=== PATIENT | male | born 1985 | race Caucasian/White ===

== ENCOUNTER 2025-01-03 22:39 | Emergency (ER) | payer MEDICAID, SELFPAY ==
--- NOTE | 2025-01-03 22:32 | ECG_ITS ---
APPROVED REPORT Exam: Resting ECG HR:120 bpm ECG Measurements Heart Rate 120 AXES MD 149 P 69 QRSd 92 QRS 49 QT 300 T 58 QTc 371 Conclusion SINUS TACHYCARDIA MODERATE VOLTAGE CRITERIA FOR LVH, CONSIDER NORMAL VARIANT [MEETS CRITERIA IN ONE OF: R(aVL), S(V1), R(V5), R(V5/V6)+S(V1)] ABNORMAL RHYTHM ECG Electronically signed by : Malcolm Hopson, 01/04/2025 00:55:10
[2025-01-03 22:41] VITALS: BP 172/117; PULSE 121; RESP 16; TEMP 36.7; O2SAT 97; BMI 23.2
[2025-01-03 22:45] VITALS: PULSE 109; RESP 11; O2SAT 98
--- NOTE | 2025-01-03 22:47 | CT_ITS ---
PROCEDURE INFORMATION: Exam: CTA Neck With Contrast Exam date and time: 01/03/2025 11:01 PM Age: 39 years old Clinical indication: Stroke-like symptoms; Speech disturbance; Additional info: Speech difficulty, lue weakness TECHNIQUE: Imaging protocol: Computed tomographic angiography of the neck with contrast. Exam focused on the cervical segments of the vasculature. 3D rendering (Not supervised by radiologist): MIP and/or 3D reconstructed images were created by the technologist. Radiation optimization: All CT scans at this facility use at least one of these dose optimization techniques: automated exposure control; mA and/or kV adjustment per patient size (includes targeted exams where dose is matched to clinical indication); or iterative reconstruction. Contrast material: ISOVUE; Contrast volume: 80 ml; Contrast route: INTRAVENOUS (IV); COMPARISON: CT HEAD/BRAIN WO CON 01/03/2025 10:58 PM FINDINGS: Right common carotid artery: No stenosis. No dissection or occlusion. Right internal carotid artery: No stenosis of the extracranial segment. No dissection or occlusion. Right external carotid artery: No occlusion or stenosis of the origin. Left common carotid artery: No stenosis. No dissection or occlusion. Left internal carotid artery: No stenosis of the extracranial segment. No dissection or occlusion. Left external carotid artery: No occlusion or stenosis of the origin. Right vertebral artery: No stenosis. No dissection or occlusion. Left vertebral artery: No stenosis. No dissection or occlusion. Soft tissues: Normal. No significant soft tissue swelling. Bones/joints: No acute fracture. IMPRESSION: No stenosis or occlusion. REFERENCES: NASCET CRITERIA. The degree of stenosis in the cervical segment of the internal carotid artery is based on NASCET criteria. Normal is no stenosis. Mild is less than 50% stenosis. Moderate is 50-69% stenosis. Severe is 70% to 99% stenosis. Total occlusion is no detectable patent lumen.
--- NOTE | 2025-01-03 22:47 | CT_ITS ---
PROCEDURE INFORMATION: Exam: CTA Head With Contrast, Arteriography Exam date and time: 01/03/2025 11:01 PM Age: 39 years old Clinical indication: Stroke-like symptoms; Speech disturbance; Additional info: Speech difficulty, speech difficulty, lue weakness TECHNIQUE: Imaging protocol: Computed tomographic angiography of the head with contrast. Exam focused on the arteries. 3D rendering (Not supervised by radiologist): MIP and/or 3D reconstructed images were created by the technologist. Radiation optimization: All CT scans at this facility use at least one of these dose optimization techniques: automated exposure control; mA and/or kV adjustment per patient size (includes targeted exams where dose is matched to clinical indication); or iterative reconstruction. Contrast material: ISOVUE; Contrast volume: 80 ml; Contrast route: INTRAVENOUS (IV); COMPARISON: CT HEAD/BRAIN WO CON 01/03/2025 10:58 PM FINDINGS: ANTERIOR CIRCULATION: Right internal carotid artery: Intracranial segment is patent with no significant stenosis. No aneurysm. Right middle cerebral artery: No occlusion or significant stenosis. No aneurysm. Right anterior cerebral artery: No occlusion or significant stenosis. No aneurysm. Left internal carotid artery: Intracranial segment is patent with no significant stenosis. No aneurysm. Left middle cerebral artery: No occlusion or significant stenosis. No aneurysm. Left anterior cerebral artery: No occlusion or significant stenosis. No aneurysm. POSTERIOR CIRCULATION: Right vertebral artery: No occlusion or significant stenosis. No aneurysm. Left vertebral artery: No occlusion or significant stenosis. No aneurysm. Basilar artery: No occlusion or significant stenosis. No aneurysm. Right posterior cerebral artery: No occlusion or significant stenosis. No aneurysm. Left posterior cerebral artery: No occlusion or significant stenosis. No aneurysm. Brain: No definite mass, mass effect, or midline shift. Cerebral ventricles: No ventriculomegaly. Bones/joints: Unremarkable. No acute fracture. Soft tissues: Unremarkable. IMPRESSION: No large vessel stenosis or occlusion.
--- NOTE | 2025-01-03 22:47 | XR_ITS ---
PROCEDURE INFORMATION: Exam: XR Chest Exam date and time: 01/03/2025 11:05 PM Age: 39 years old Clinical indication: Pain; Chest pressure; Additional info: Cp TECHNIQUE: Imaging protocol: Radiologic exam of the chest. Views: 1 view. COMPARISON: CT ANGIO NECK 01/03/2025 11:01 PM FINDINGS: Lungs: Unremarkable. No consolidation. Pleural spaces: Unremarkable. No pleural effusion. No pneumothorax. Heart/Mediastinum: Unremarkable. No cardiomegaly. Bones/joints: Unremarkable. IMPRESSION: No acute findings.
--- NOTE | 2025-01-03 22:47 | CT_ITS ---
PROCEDURE INFORMATION: Exam: CT Head Without Contrast Exam date and time: 01/03/2025 10:58 PM Age: 39 years old Clinical indication: Stroke-like symptoms; Speech disturbance; Additional info: Speech difficulty, lue weakness TECHNIQUE: Imaging protocol: Computed tomography of the head without contrast. Radiation optimization: All CT scans at this facility use at least one of these dose optimization techniques: automated exposure control; mA and/or kV adjustment per patient size (includes targeted exams where dose is matched to clinical indication); or iterative reconstruction. Other technique: STROKE PROTOCOL was implemented. COMPARISON: No relevant prior studies available. FINDINGS: Brain: Chronic small vessel ischemic disease. No hemorrhage. No mass effect. No findings to suggest acute infarction. Cerebral ventricles: No ventriculomegaly. Paranasal sinuses: Mild mucosal thickening in the left maxillary sinus. Mastoid air cells: Visualized mastoid air cells are well aerated. Bones: Unremarkable. No acute fracture. Soft tissues: Unremarkable. IMPRESSION: No findings to suggest acute infarction. Chronic small vessel ischemic disease. ASSESSMENT: ASPECTS (Tari Stroke Program Early CT Score) is 10.
--- NOTE | 2025-01-03 22:53 | PC.NURSE ---
respiratory contacted regarding the order for VBG
[2025-01-03 22:55] LABS: Basophils # 0.1 K/mm3 (0-0.2); Basophils % 0.9 % (0.1-2.0); Eosinophils # 0.1 Kmm3 (0.0-0.4); Eosinophils % 1.3 % (0.1-12.0); Hematocrit 44.5 % (42.0-52.0); Hemoglobin 15.6 g/dL (14.1-18.0); Lymphocytes # 0.7 K/mm3 (0.7-4.5); Lymphocytes % 13.1 % (10-50); Mean Corpuscular HGB Conc 35.1 g/dL (31.8-35.4); Mean Corpuscular Hemoglobin 32.6 pg (27.0-31.2); Mean Corpuscular Volume 92.9 fl (80-94); Mean Platelet Volume 11.6 fl (7.4-10.4); Monocytes # 0.1 K/mm3 (0.1-1.0); Monocytes % 1.3 % (1.7-9.3); Neutrophils # 4.4 K/mm3 (1.8-7.8); Neutrophils % 82.8 % (37.0-80.0); Nucleated Red Blood Cells # 0 10^3/uL; Nucleated Red Blood Cells % 0 %; Platelet Count 186 K/mm3 (142-424); Red Blood Count 4.79 M/mm3 (4.60-6.20); Red Cell Distribution Width 13.7 % (11.5-17.5); Red Cell Distribution Width-SD 46.9 fL; White Blood Count 5.3 K/mm3 (4.8-10.8)
[2025-01-03 22:55] LABS: VBG Base Excess -1.9 mmol/L (-2.4-2.3); VBG HCO3 22.8 mmol/L (23-30); VBG Oxygen Saturation 98.9 % (50-70); VBG PCO2 37.2 mmol/L (35-51); VBG PH 7.41 mmol/L (7.31-7.41); VBG PO2 153.4 mmol/L (28-40); VBG Total CO2 23.9 mmol/L (23-27)
[2025-01-03 22:56] LABS: Lactate Venous 3.1 mmol/L (0.4-2.0)
[2025-01-03] MEDS: 0.9 % SODIUM CHLORIDE 1000ML 1,000 ML 999 ML IV (22:57)
[2025-01-03 22:58] LABS: Alanine Aminotransferase 70 U/L (12-78); Albumin Level 5.4 g/dl (3.5-5.0); Alkaline Phosphatase 72 U/L (38-126); Anion Gap 14.5 mEq/L (5-15); Aspartate Amino Transferase 82 U/L (17-59); Bilirubin,Total 0.5 mg/dl (0.2-1.3); Blood Urea Nitrogen 10 mg/dl (9-20); Calcium 9.9 mg/dl (8.4-10.2); Carbon Dioxide 23 mmol/L (22.0-30.0); Chloride 110 mmol/L (98-107); Creatinine Clearance Estimated 127 mL/min (50-200); Estimated Glomerular Filt Rate 126 ml/min (>60); GFR (African American) 152 ML/MIN (>60); Globulin 2.7 g/dL (1.3-3.2); Glucose 164 mg/dl (74-100); Magnesium 2.3 mg/dl (1.6-2.3); Potassium 4.5 mmoL/L (3.5-5.1); Sodium 143 mmol/L (136-145); Total Protein,Serum 8.1 g/dl (6.3-8.2)
--- NOTE | 2025-01-03 22:59 | PC.NURSE ---
Pt out of the room to CT scan.
[2025-01-03 23:09] VITALS: BP 175/105; PULSE 116; O2SAT 97
--- NOTE | 2025-01-03 23:09 | HMH.EDGENADL ---
Discharge Plan Disposition Patient Disposition: Home, Self-Care Condition: Good Prescriptions Prescriptions: New aspirin 81 mg tablet,chewable 81 mg PO DAILY Qty: 30 0RF atorvastatin 20 mg tablet 20 mg PO DAILY Qty: 30 0RF Referrals Follow up/Referrals: Provider,Referral, [Primary Care Provider] - See instructions Activity Restrictions/Add. Instructions Additional Instructions/Restrictions: Make sure to follow-up with your primary care doctor soon as possible for an MRI. Take your aspirin and statin that I prescribed you. Return to the emergency department at once with any return in your symptoms. Please follow up with your primary care provider in 2-3 days. Please return to ED if your symptoms worsen, change in location, change in severity, new symptoms develop or if you become concerned for your health. Clinical Impressions Clinical Impression: Stroke-like symptoms Print Language Print Language: Citizen Of [place] Discharge ED Provider: Malcolm Hopson Adult HPI General Chief complaint: Neuro Symptoms/Deficit Stated complaint: Chest pain Time Seen by Provider: 01/03/25 22:47 Mode of Arrival: Ambulatory Source of Information: Significant Other Description of Symptoms (Recalled from ER Triage Doc. by RN): pt presents with c/o tingling to all extremities, stuttering speech, pain to left arm. Pt reports tingling beginning weeks ago with stuttering speech hours ago Pt unsure of what left sided facial droop began. Related Data Previous Rx's ?Medication ?Instructions ?Recorded aspirin 81 mg chewable tablet 81 mg PO DAILY #30 tabs 01/04/25 atorvastatin 20 mg tablet 20 mg PO DAILY #30 tabs 01/04/25 Allergies Allergy/AdvReac Type Severity Reaction Status Date / Time Penicillins AdvReac Other Verified 01/03/25 22:49 [facility] Disclaimer: The information contained in this section may have been updated after the patient was seen, as this information can be updated by other users. Social History Smoking Status: Current every day smoker alcohol intake: current current occupational status: unemployed Travel in the last 8 weeks?: None ROS Obtained: Yes All systems reviewed & no additional complaints except as documented Physical Exam General General appearance: alert and in no apparent distress Head Head exam: atraumatic Eye Eye exam: Present normal appearance, PERRL and EOMI ENT ENT exam: Present normal exam and normal oropharynx Neck Neck exam: Present normal inspection and full ROM; Absent tenderness Chest Chest inspection: Present normal inspection Respiratory Respiratory exam: Present normal lung sounds bilaterally; Absent respiratory distress Cardiovascular Cardiovascular exam: Present regular rate, normal rhythm and normal heart sounds Abdominal Exam Abdominal exam: Present soft; Absent distention or tenderness Extremities Exam Extremities exam: Present normal inspection Neurological Exam Neurological exam: Present alert, oriented X3, CN II-XII intact and motor sensory deficit (LUE and LLE breakaway weakness, inconsistent exam) Psychiatric Psychiatric exam: Present anxious Medical Decision Making Medical Records Screening: Per USPSTF and CDC recommendations, given the prevalence of disease in our region, it is our hospital?s policy to screen for HIV and viral Hepatitis for all patients aged 18 and over and those with ongoing risk factors. Michael Inquiry Pt receiving controlled substance: No Vital Signs: 01/03/25 22:41 01/03/25 22:45 01/03/25 23:09 Temperature 98.1 F Temperature Source Oral Pulse Rate 109 H 116 H Pulse Rate [Radial] 121 H Respiratory Rate 16 11 L Blood Pressure 175/105 H Blood Pressure [Right Arm] 172/117 H Blood Pressure Mean [Right Arm] 135 Blood Pressure Position [Right Arm] Supine 02 Sat by Pulse Oximetry 97 98 97 Oxygen Delivery Method Room Air 01/03/25 23:30 Temperature Temperature Source Pulse Rate 103 H Pulse Rate [Radial] Respiratory Rate 20 Blood Pressure 145/102 H Blood Pressure [Right Arm] Blood Pressure Mean [Right Arm] Blood Pressure Position [Right Arm] 02 Sat by Pulse Oximetry 98 Oxygen Delivery Method Lab Data Lab Results 01/03/25 22:40: WBC 5.3, RBC 4.79, Hgb 15.6, Hct 44.5, MCV 92.9, MCH 32.6 H, MCHC 35.1, RDW 13.7, Plt Count 186, MPV 11.6 H, Neut % (Auto) 82.8 H, Lymph % (Auto) 13.1, Brewster % (Auto) 1.3 L, Eos % (Auto) 1.3, Baso % (Auto) 0.9, Neut # (Auto) 4.4, Lymph # (Auto) 0.7, [place] # (Auto) 0.1, Eos # (Auto) 0.1, Baso # (Auto) 0.1, Sodium 143, Potassium 4.5, Chloride 110 H, Carbon Dioxide 23, Anion Gap 14.5, BUN 10, Creatinine 0.70, Estimated Creat Clear 127, Estimated GFR 126, Est GFR ( Amer) 152, Glucose 164 H, Calcium 9.9, Magnesium 2.3, Total Bilirubin 0.5, AST 82 H, ALT 70, Alkaline Phosphatase 72, Troponin I < 0.01, Total Protein 8.1, Albumin 5.4 H, Globulin 2.7, Albumin/Globulin Ratio 2.0 H 01/03/25 22:53: VBG pH 7.41, VBG pCO2 37.2, VBG pO2 153.4 H, VBG HCO3 22.8 L, VBG Total CO2 23.9, VBG O2 Saturation 98.9 H, VBG Base Excess -1.9, VBG Lactic Acid 3.1 H 01/03/25 22:40 01/03/25 22:40 Orders (Tests/Meds): ED MEDICATIONS Discontinued Medications Generic Name Dose Route Start Last Admin Trade Name Freq PRN Reason Stop Dose Admin Sodium Chloride 1,000 mls @ 999 mls/hr 01/03/25 22:47 01/03/25 22:57 Sod Chlor 0.9% 1000ml Bag IV 01/03/25 23:47 999 mls/hr .Q1H1M ONE Administration Iopamidol 80 ml 01/03/25 23:11 01/03/25 23:12 Iopamidol-370 (76%);100ml Bottle IV 01/03/25 23:12 80 ml ONCE ONE Administration Sodium Chloride 50 ml 01/03/25 23:11 01/03/25 23:12 0.9 % Sodium Chloride 50 Ml Vial IV 01/03/25 23:12 50 ml ONCE ONE Administration Sodium Chloride 10 ml 01/03/25 23:11 01/03/25 23:12 Sodium Chloride 0.9% 10ml Syr (Rad Only) IV 01/03/25 23:12 10 ml ONCE ONE Administration ORDERS Category Date Time Status CT angio head Stat Cat Scan 01/03/25 22:[address] angio neck Stat Cat Scan 01/03/25 22:[address] head/brain wo con Stat Cat Scan 01/03/25 22:47 Completed CXR --portable [XR chest portable] Stat Exams 01/03/25 22:47 Completed CBC w/Auto Diff [Complete Blood Count Auto Diff] Stat Lab 01/03/25 22:40 Completed CMP [Comprehensive Metabolic Panel] Stat Lab 01/03/25 22:40 Completed MAG [Magnesium] Stat Lab 01/03/25 22:40 Completed Trop I [Troponin I] Stat Lab 01/03/25 22:40 Completed Troponin I Q3H Lab 01/04/25 02:00 Ordered Troponin I Q3H Lab 01/04/25 05:00 Ordered UA [Urinalysis and Microscopic] Stat Lab 01/03/25 22:47 Ordered UDS [Drug Screen,Urine] Stat Lab 01/03/25 22:47 Ordered VBG [Venous Blood Gas] Stat RT 01/03/25 22:53 Completed Medical Decision Narrative: Patient is a 39-year-old male with history of PTSD, anxiety. He presents today due to concerns for weakness and speech difficulties. He has significant stuttered speech, so most of history is provided by loved 1 at bedside. She reports that he reported that he has been feeling numb and weak in his fingertips for the last 3 to 4 days. Difficulties began about an hour and a half prior to arrival where he was stuttering and speech and would stare off. Has never done this before per her. He denies any recent fevers. Does report some left anterior chest pain that radiates to his arm. This happens from time to time when he gets anxious he reports. Denies any recent falls or trauma. He reports drug use, but reports that is been sometime. Does drink up to 3 tall boys daily. Last drink was about an hour prior to arrival. In summary, this 39-year-old male presents to the emergency department today with speech difficulties and weakness. On initial evaluation patient is afebrile, mildly tachycardic to 107, mildly hypertensive 160/110. I was called immediately to bedside for concern for stroke alert. Last known well was over 3 days ago, so was not officially made a stroke alert, but emergent scans. He had stuttering speech, which is not a cortical issue, but also had some subjective weakness on the left upper and left lower extremities, but they were breakaway weakness was moving with good strength when IVs were placed. I have a high suspicion for this being functional, but nevertheless proceeded with stroke scans.. Differential diagnosis includes but is not limited to malingering, conversion, CVA, ICH, ACS, PR. Based on these concerns, I ordered CBC CMP mag troponin UA UDS VBG CT head CTA head and neck.. ECG personally interpreted demonstrates sinus tachycardia with no acute ischemic ST changes. Intervals within normal limits.. Patient received saline bolus for treatment. Labs personally reviewed demonstrate no anemia no leukocytosis no significant electrolyte derangement no ANNIKA. Troponin flat, low suspicion for ACS. VBG within normal limits.. XR personally interpreted demonstrates no acute intrathoracic process. CT imaging personally interpreted demonstrate no acute intracranial process. This confirmed by the radiologist final read including angiographies. On reassessment patient reports complete resolution of symptoms. He is able to work about the emergency department and remains completely now neurovascularly intact. ABCD2 score is a 5 technically. I have offered him admission for MRI and TIA workup, however he adamantly declines and he is able to verbalize these risks back to me. He has good follow-up with his PCP in [facility]. I will send him with aspirin and high-dose statin instructed to precautions.. Of note, social determinants of health include alcohol and drug abuse. At this time it was felt that the patient was safe to be discharged home. The patient was in agreement with this plan. The patient was given strict return precautions prior to being discharged from the emergency department. Critical Care Critical Care Time Critical Care Time: Yes Attestation: On 01/03/25, the high probability of a clinically significant, sudden or life threatening deterioration of the following system(s) required my full and direct attention, intervention and personal management. The time I documented below is in addition to time spent performing reported procedures but includes the following listed in this critical care notation. Neuro Total Time Total Critical Care Time: 34
[2025-01-03 23:11] LABS: Troponin I < 0.01 ng/ml (0.00-0.034)
--- NOTE | 2025-01-03 23:11 | PC.NURSE ---
pt returned from ct scan without incident.
[2025-01-03] MEDS: SODIUM CHLORIDE 0.9% 10ML SYR (RAD ONLY) 10 ML IV (23:12)
[2025-01-03] MEDS: IOPAMIDOL-370 (76%);100ML BOTTLE 80 ML IV (23:12)
[2025-01-03] MEDS: 0.9 % SODIUM CHLORIDE 50 ML VIAL IV (23:12)
[2025-01-03 23:30] VITALS: BP 145/102; PULSE 103; RESP 20; O2SAT 98
[2025-01-04] VITALS: BP 149/104; PULSE 104; RESP 11; O2SAT 99
[2025-01-04 00:20] VITALS: BP 149/104; PULSE 74; RESP 14; TEMP 36.6; O2SAT 100
== END 2025-01-04 00:21 | disposition home or self-care (01) ==
PROVIDERS: Emergency Provider Emergency Medicine
DX: R07.89 Other chest pain (principal); R29.818 Other symptoms and signs involving the nervous system; R00.0 Tachycardia, unspecified
CPT/HCPCS: 70450; 70496; 70498; 71045; 80053; 82803; 83735; 84484; 85025; 93005; 96360; 99291; J7030; Q9967